=== PATIENT | female | born 1985 | race African-American/Black ===

== ENCOUNTER 2021-01-12 15:05 | Emergency (ER) | payer OTHER ==
[2021-01-12 15:25] VITALS: BP 109/67; PULSE 96; TEMP 98; BMI 30.9
[2021-01-12] MEDS ORDERED: SODIUM CHLORIDE 0.9% 500 ML INFUS.BAG IV ONE (17:56)
== END 2021-01-12 20:00 | disposition left against medical advice (07) ==
LOC: JER 15:05
DX: R19.7 Diarrhea, unspecified (principal)
CPT/HCPCS: 99281-25